=== PATIENT | male | born 1975 | race Caucasian/White ===

== ENCOUNTER 2017-04-04 08:06 | Emergency (ER) | payer OTHER ==
[2017-04-04 08:15] VITALS: BP 161/90
--- NOTE | 2017-04-04 09:07 | UC ---
Throat Pain/Nasal [place] HPI - HPI Summary HPI Summary: ONSET OF ST, PAIN WITH SWALLOWING, PIERRE YESTERDAY. ALSO HAS SUBJECTIVE FEVER. RIGHT EAR FEELS CLOGGED. - History of Current Complaint Chief Complaint: UCGeneralIllness Stated Complaint: SORE THROAT Time Seen by Provider: 04/04/17 08:41 Hx Obtained From: Patient Onset/Duration: Gradual Onset, Lasting Days, Still Present Severity: Moderate Pain Intensity: 9 Pain Scale Used: 0-10 Numeric Cough: None Associated Signs & Symptoms: Positive: Fever - Allergies/Home Medications Allergies/Adverse Reactions: Allergies Allergy/AdvReac Type Severity Reaction Status Date / Time No Known Allergies Allergy Verified 04/04/17 08:14 Home Medications: Home Medications Ustekinumab (IV) [Stelara] 2.5 ml SUBCUT SEE INSTRUCTIONS 04/04/17 [History Confirmed 04/04/17] PMH/Surg Hx/FS Hx/Imm Hx - Additional Past Medical History Additional PMH: PSORIASIS Other History Of: Negative For: HIV, Hepatitis B, Hepatitis C, Anticoagulant Therapy - Surgical History Surgical History: None Surgery Procedure, Year, and Place: PSORIASIS - Family History Known Family History: Negative: Cardiac Disease, Hypertension, Diabetes Family History: No FHx asthma - Social History Alcohol Use: Weekly Alcohol Amount: 2-3 TIMES A WEEK Substance Use Type: None Smoking Status (MU): Former Smoker Type: Smokeless Tobacco Amount Used/How Often: 1-2 cans per week, Length of Time of Smoking/Using Tobacco: 15 years Have You Smoked in the Last Year: No Household Exposure Type: Cigarettes - Immunization History Most Recent Influenza Vaccination: Not uTD Vaccination Up to Date: Yes Review of Systems Constitutional: Fever ENT: Sore Throat Respiratory: Negative Cardiovascular: Negative Gastrointestinal: Negative All Other Systems Reviewed And Are Negative: Yes Physical Exam Triage Information Reviewed: Yes Appearance: Well-Appearing, No Pain Distress, Well-Nourished Vital Signs: Initial Vital Signs Temp 98.7 F 04/04/17 08:09 Pulse 100 04/04/17 08:09 Resp 16 04/04/17 08:09 BP 161/90 04/04/17 08:09 Pulse Ox 100 04/04/17 08:09 Vital Signs Reviewed: Yes Eyes: Positive: Conjunctiva Clear ENT: Positive: Hearing grossly normal, Pharynx normal, TMs normal. Negative: Tonsillar swelling, Tonsillar exudate Neck: Positive: Supple, No Lymphadenopathy, Tenderness @ - SPFL CERVICAL Respiratory Exam: Normal Cardiovascular Exam: Normal Abdomen Description: Positive: Soft Musculoskeletal: Positive: No Edema Neurological: Positive: Alert Psychological: Positive: Age Appropriate Behavior Skin: Negative: rashes Diagnostics - Laboratory Diagnostic Studies Completed/Ordered: RAPID STREP POSITIVE Throat Pain/Nasal Course/Dx - Differential Dx/Diagnosis Provider Diagnoses: STREP PHARYNGITIS Discharge - Discharge Plan Condition: Stable Disposition: HOME Prescriptions: Amoxicillin PO (*) [Amoxicillin 500 MG CAP*] 1,000 mg PO DAILY #20 cap Patient Education Materials: Strep Throat (ED) Referrals: Narayan Victoria MD [Primary Care Provider] - If Needed Additional Instructions: STREP TEST POSITIVE OTC CHLORASEPTIC OR CEPACOL LOZENGES AND/OR IBUPROFEN FOR SORE THROAT NEEDED ONCE SYMPTOMS RESOLVED - NEW TOOTHBRUSH DO NOT SHARE FOOD, DRINK, UTENSILS TAKE ANTIBIOTICS FOR FULL 10 DAYS.
== END 2017-04-04 09:22 | disposition home or self-care (01) ==
LOC: UCEAST 08:06
DX: J02.0 Streptococcal pharyngitis (principal); Z87.891 Personal history of nicotine dependence
CPT/HCPCS: 87651; 99212; G0463

== ENCOUNTER 2018-04-09 11:11 | Emergency (ER) | payer BC, MEDICAID, OTHER ==
[2018-04-09 11:36] VITALS: BP 133/92
--- NOTE | 2018-04-09 12:30 | UC ---
Abdominal Pain Male HPI - HPI Summary HPI Summary: 42 y/o male with PMH of psoriasis c/o intermittent diarrhea, nausea, abdominal bloating, increased flatus. Denies fever, chills, mucous stools, bleeding/ dark, tarry stooling. no anal itching, no vomiting, no cramping. no prior episodes. increased stress with mother with terminal cancer and holiday stress. - History of Current Complaint Chief Complaint: UCGeneralIllness Stated Complaint: UPSET STOMACH, AND NAUSEA Time Seen by Provider: 04/09/18 11:57 Hx Obtained From: Patient Onset/Duration: Sudden Onset, Lasting Weeks - intermittent episodes with normal periods inbetween, Still Present Severity Initially: Mild Severity Currently: Moderate Pain Intensity: 5 Pain Scale Used: 0-10 Numeric Location: Diffuse - abdominal discomfort Character: Dull Alleviating Factor(s): Nothing - Allergies/Home Medications Allergies/Adverse Reactions: Allergies Allergy/AdvReac Type Severity Reaction Status Date / Time No Known Allergies Allergy Verified 04/09/18 11:36 Home Medications: Home Medications Glucosam/Chondr/Collagn/Hyalur [Glucosamine & Chondroitin Cap] 1 tab PO DAILY [History Confirmed 04/09/18] Valarian Root 2 tab PO ONCE PRN 04/09/18 [History Confirmed 04/09/18] PMH/Surg Hx/FS Hx/Imm Hx Previously Healthy: Yes Other History Of: Negative For: HIV, Hepatitis B, Hepatitis C, Anticoagulant Therapy - Surgical History Surgical History: None Surgery Procedure, Year, and Place: PSORIASIS - Family History Known Family History: Negative: Cardiac Disease, Hypertension, Diabetes Family History: No FHx asthma - Social History Alcohol Use: Weekly Alcohol Amount: 2-3 TIMES A WEEK Substance Use Type: None Smoking Status (MU): Former Smoker Type: Smokeless Tobacco Amount Used/How Often: 1-2 cans per week, Length of Time of Smoking/Using Tobacco: 15 years Have You Smoked in the Last Year: No Household Exposure Type: Cigarettes - Immunization History Most Recent Influenza Vaccination: Not uTD Vaccination Up to Date: Yes Review of Systems All Other Systems Reviewed And Are Negative: Yes Constitutional: Positive: Fatigue Gastrointestinal: Positive: Abdominal Pain - minimal, Diarrhea, Nausea - frequent Psychological: Positive: Anxious, Other - increased stress Is Patient Immunocompromised?: No Physical Exam - Summary Physical Exam Summary: neg psoas, neg obturator Triage Information Reviewed: Yes Appearance: Well-Appearing, No Pain Distress, Well-Nourished Vital Signs: Initial Vital Signs Temp 97.9 F 04/09/18 11:31 Pulse 96 04/09/18 11:31 Resp 18 04/09/18 11:31 BP 133/92 04/09/18 11:31 Pulse Ox 100 04/09/18 11:31 Eyes: Positive: Conjunctiva Clear Abdomen Description: Positive: Nontender, No Organomegaly, Soft. Negative: Bruit, CVA Tenderness (R), CVA Tenderness (L), Distended, Guarding, Hepatomegaly , McBurney's Point Tenderness, Splenomegaly Bowel Sounds: Positive: Present. Negative: Hypoactive, Hyperactive Musculoskeletal: Positive: Strength Intact, ROM Intact Skin Exam: Normal Skin: Positive: Other - multiple areas of raising plaques on abdomen, back Abd Pain Male Course/Dx - Course Course Of Treatment: discussed causes of abdominal pain inclusing infectious, autoimmune, and stress/ IBS . stool kit given, antinausea medications, follow up with GP / GI if no improvement - Differential Dx/Clinical Impression Differential Diagnosis/HQI/PQRI: Diverticulitis, Epididymitis, Testicular Torsion, Ureteral Stone Provider Diagnosis: Nausea Discharge - Sign-Out/Discharge Documenting (check all that apply): Patient Departure All imaging exams completed and their final reports reviewed: No Studies - Discharge Plan Condition: Good Disposition: HOME Prescriptions: Ondansetron ODT TAB* [Zofran 4 MG Odt TAB*] 4 mg PO Q6H PRN #15 tab.odt PRN Reason: Nausea Patient Education Materials: Irritable Bowel Syndrome (ED), Crohn Disease (ED) , Ulcerative Colitis (ED) Referrals: Narayan Victoria MD [Primary Care Provider] - Additional Instructions: - Increase fluids - Zofran as needed for nausea - Stool kit- bring sample back for testing - Follow up with GI if continued symptoms for 5-10 days - Go to ER iwth dark tarry stools, bleeding, or increased symptoms/ unable to tolerate oral intake - Billing Disposition and Condition Condition: GOOD Disposition: Home
== END 2018-04-09 12:44 | disposition home or self-care (01) ==
LOC: UCEAST 11:11
DX: R11.0 Nausea (principal); Z87.891 Personal history of nicotine dependence
CPT/HCPCS: 99212; G0463